=== PATIENT | female | born 1945 | race Caucasian/White ===

== ENCOUNTER 2016-09-10 08:53 | Emergency (ER) | payer MEDICARE, BC ==
[2016-09-10] MEDS ORDERED: NORMAL SALINE 1,000 ML IV ONE (09:22)
[2016-09-10] MEDS ORDERED: MORPHINE SULFATE 2 MG/ML DISP.SYRIN IV ONE ×2 (09:23→11:45)
[2016-09-10] MEDS ORDERED: DIAZEPAM 5 MG/ML SYRG IV ONE (09:23)
--- NOTE | 2016-09-10 09:31 | ERNOTE ---
Head Injury HPI - Narrative Date of Service: 09/10/16 - General Time Seen by Provider: 09/10/16 09:11 - Immun/Allergies/Home Medications Immunization: IMMUNIZATION HX Immunizations Up to Date Yes History of Influenza Vaccine Yes Hx Pneumococcal Vaccination Yes Allergies/Adverse Reactions: Allergies Allergy/AdvReac Type Severity Reaction Status Date / Time aspirin Allergy Severe Verified 09/10/16 09:09 NSAIDS (Non-Steroidal Allergy Severe Verified 09/10/16 09:09 Anti-Inflamma Home Medications: HOME MEDICATIONS Lovastatin 10 mg PO 08/07/15 [Last Taken Unknown] Cyclobenzaprine HCl [Flexeril] 10 mg PO Q8H PRN #14 tablet 09/10/16 [Last Taken Unknown] oxyCODONE HCL [Oxycodone] 5 mg PO Q6H PRN 09/10/16 [Last Taken Unknown] - History of Present Illness Narrative: Patient presents with neck pain that started 3 days ago. She says it's more on the left but is also situated slightly on the right. She denies any headache denies any change of vision. She doesn't know she slept on it wrong way denies any injury she has had a history of an aneurysm in the past. Patient denies any blurring of vision no chest pain or shortness of breath. No weakness in the upper or lower extremities. No paresthesia or numbness or tingling. No fever. No nausea vomiting or diarrhea Once again patient denies any paresthesias in the upper or lower extremities no weakness no evidence of wrist drop. No shooting pain down the arms. Severity: mild Loss of Consciousness: Reports: no loss of consciousness Review of Systems - Review of Systems Constitutional: Absent: fever, diaphoresis, weakness EYE: Absent: blurred vision, double vision, vision changes ENT: Absent: nasal drainage, sore throat Respiratory: Absent: shortness of breath, cough, orthopnea Cardiology: Absent: chest pain, palpitations Gastrointestinal/Abdominal: Absent: nausea, vomiting - Patient's Past Medical History Patient History - Medical: No pertinent hx Patient History - Cardiac/Respiratory: Hyperlipidemia Patient History - Cancer: No Hx of Cancer Patient History - Surgical Procedures: Appendectomy, Cholecystectomy, Colonoscopy, Total Hip Replacement - Social History Living Situations: home Smoking Status: Never smoker Have you smoked in the past 12 months: No Alcohol Use: none Drug Use: none Physical Exam - Physical Exam General Appearance: Present: wd/wn, alert, no apparent distress Eye Exam: Normal inspection: bilateral, PERRL: bilateral, EOMI: bilateral Ears, Nose, Throat: Present: normal ENT inspection, hearing grossly normal, normal pharynx Neck: Present: normal inspection, nontender Respiratory: Present: no respiratory distress, normal breath sounds, no accessory muscle use, chest nontender, lungs clear Cardiovascular/Chest: Present: regular rate, rhythm, no murmur, normal peripheral pulses Peripheral Pulses: N=norm/S=strong/W=weak/B=bound/A=absent: Femoral (L): Normal Gastrointestinal/Abdominal: Present: normal bowel sounds, nontender, nondistended, soft, no organomegaly Back Exam: Present: normal inspection, normal range of motion, no CVA tenderness , no vertebral tenderness Extremity Exam: Present: normal inspection, non-tender, no edema, normal range of motion Neurological Exam: Present: alert, oriented, normal mood/affect, no motor/ sensory deficits - neck examination she's had some tenderness at the sternocleidal mastoid muscle with flexion and looking towards the right. Otherwise good range of motion of the cervical spine. no neck Stiffness no rigidity, no photosensitivity to light ED Progress - Results and Orders Patient's Lab Results:: I have reviewed the patient's lab results. - Vital Signs Patient's Vital Signs:: I have reviewed the patient's vital signs. Vital Signs: Vital Signs 09/10/16 08:57 Temperature 35.6 C L Pulse Rate 84 Respiratory 16 Rate Blood Pressure 160/89 O2 Sat by Pulse 98 Oximetry - CT/Ultrasound CT/Ultrasound Narrative: CT head neck angiogram does not show any acute processes. - Progress/Reassessment Chief Complaint: Neck Pain/Injury Progress:: Improved - Transfer of Care Expected Disposition: Discharge Departure Clinical Impression: Neck pain, Neck muscle strain - Departure Disposition: Home Follow Up Needed Instructions: Cervical Sprain, [id number], Muscle Pain, Adult Prescriptions: Cyclobenzaprine HCl [Flexeril] 10 mg PO Q8H PRN #14 tablet PRN Reason: Muscle Spasm
[2016-09-10] MEDS ORDERED: MORPHINE SULFATE 2 MG/ML DISP.SYRIN ONE ×2 (09:32→11:48)
[2016-09-10] MEDS ORDERED: DIAZEPAM 5 MG/ML SYRG ONE (09:32)
[2016-09-10 09:45] LABS: Hematocrit 43.2 % (37.0-47.0); Hemoglobin 13.5 gm/dL (12.5-16.0); Mean Cell Volume 92.1 fl (78-100); Mean Corpuscular Hemoglobin 28.8 pg (27-31); Mean Corpuscular Hgb Conc 31.3 g/dl (32-36); Mean Platelet Volume 10.1 fl (6.0-9.5); Neutrophil # 4.8 K/mm3 (1.3-6.0); Neutrophil % 71.3 % (42-75.0); Platelet Count 169 K/mm3 (150-450); Red Blood Count 4.69 M/mm3 (4.2-5.4); Red Cell Distribution Width 13.5 % (11.5-14.0); White Blood Count 6.8 K/mm3 (4.0-10.5)
[2016-09-10 09:58] LABS: Albumin * 4.4 gm/dl (3.4-5.0); Anion Gap 10.5 mmol/L (6.8-13.8); BUN/Creatinine Ratio 18.6 (9.0-21.6); Bilirubin, Total 0.6 mg/dL (0.0-1.1); Calcium * 9.6 mg/dL (7.9-10.9); Carbon Dioxide 29.5 mmol/L (24-32.6); Total Protein 8.4 gm/dL (6.2-8.2)
[2016-09-10 11:59] VITALS: BP 164/86
== END 2016-09-10 11:59 | disposition home or self-care (01) ==
LOC: ER 08:53
DX: M54.2 Cervicalgia (principal); S16.1XXA Strain of muscle, fascia and tendon at neck level, initial encounter

== ENCOUNTER 2017-06-10 09:56 | Emergency (ER) | payer MEDICARE, BC ==
--- NOTE | 2017-06-10 11:05 | ERNOTE ---
Lower Extremity HPI - General Time Seen by Provider: 06/10/17 10:17 Source: patient Exam Limitations: no limitations - Immun/Allergies/Home Medications Immunizations: IMMUNIZATION HX Immunizations Up to Date Yes History of Influenza Vaccine Yes Hx Pneumococcal Vaccination Yes Allergies/Adverse Reactions: Allergies Allergy/AdvReac Type Severity Reaction Status Date / Time aspirin Allergy Severe Verified 06/10/17 10:15 NSAIDS (Non-Steroidal Allergy Severe Verified 06/10/17 10:15 Anti-Inflamma Home Medications: HOME MEDICATIONS Lovastatin 10 mg PO 08/07/15 [Last Taken Unknown] - History of Present Illness Narrative: Patient presents to the emergency room 2 days after she had a pedicure during which they pulled and squeezed on her right Achilles tendon region. Patient now has severe pain in the right Achilles tendon area. Ambulation causes pain. Occurred: last week Review of Systems - Review of Systems Constitutional: Present: no symptoms reported EYE: Present: no symptoms reported ENT: Present: no symptoms reported Respiratory: Present: no symptoms reported Cardiology: Present: no symptoms reported Gastrointestinal/Abdominal: Present: no symptoms reported Musculoskeletal: Present: See HPI - Patient's Past Medical History Patient History - Medical: No pertinent hx Patient History - Cardiac/Respiratory: No pertinent hx Patient History - Cancer: No Hx of Cancer Patient History - Surgical Procedures: Appendectomy, Cholecystectomy, Colonoscopy, Total Hip Replacement, Total Knee Replacement, Other Patient History - Other: None LMP (females 10-50): other - Social History Living Situations: spouse Abuse History: No History of abuse Psych History: No pertinent hx Smoking Status: Former smoker Have you smoked in the past 12 months: No Do you dip or chew tobacco: No Alcohol Use: none Drug Use: none - Immunizations Immunizations Up to Date: Yes Hx Pneumococcal Vaccination: Yes History of Influenza Vaccine: Yes Physical Exam - Physical Exam General Appearance: Present: wd/wn, alert, no apparent distress Respiratory: Present: no respiratory distress, normal breath sounds, no accessory muscle use, chest nontender, lungs clear Cardiovascular/Chest: Present: regular rate, rhythm, no murmur, normal peripheral pulses Extremity Exam: Present: normal inspection, other - patient is exquisitely tender upon palpation of the right Achilles tendon region. Plantar flexion and dorsiflexion is intact she has no severe pain upon pout plantar flexion she only has pain when she bears weight and when I squeeze her Achilles tendon on the right side. Neurological Exam: Present: alert, oriented, normal mood/affect ED Progress - Vital Signs Patient's Vital Signs:: I have reviewed the patient's vital signs. Vital Signs: Vital Signs 06/10/17 10:09 Temperature 36.6 C Pulse Rate 128 H Respiratory 12 Rate Blood Pressure 151/90 O2 Sat by Pulse 92 Oximetry - X-Ray X-Ray #1 X-Ray: ankle - Progress/Reassessment Chief Complaint: Ankle Injury/ Pain Departure Clinical Impression: Achilles tendinitis Qualifiers: Laterality: right Qualified Code(s): M76.61 - Achilles tendinitis, right leg - Departure Disposition: Home self-care Condition: Good Instructions: Achilles Tendinitis Additional Instructions: Please use crutches during ambulation so you do not bear weight on your right lower extremity and take Tylenol as needed for pain. Referrals: Dorita Giraldo FNP [Primary Care Provider] -
[2017-06-10 11:27] VITALS: BP 148/87
== END 2017-06-10 11:27 | disposition home or self-care (01) ==
LOC: ER 09:56
DX: M76.61 Achilles tendinitis, right leg (principal)